=== PATIENT | male | born 1970 | race Caucasian/White ===

== ENCOUNTER 2018-04-01 05:26 | Emergency (ER) | payer OTHER ==
[2018-04-01] MEDS ORDERED: HYDROcodone/Acetaminophen 10/325 mg Tablet ONE (05:47)
[2018-04-01] MEDS ORDERED: Ibuprofen 800 MG TAB ONE (05:48)
[2018-04-01] MEDS ORDERED: AMOXicillin 250 MG CAP ONE (05:48)
== END 2018-04-01 06:00 | disposition home or self-care (01) ==
LOC: BURERS 05:26
DX: K04.7 Periapical abscess without sinus (principal); I10 Essential (primary) hypertension; F43.10 Post-traumatic stress disorder, unspecified; F41.9 Anxiety disorder, unspecified; F31.9 Bipolar disorder, unspecified; F17.210 Nicotine dependence, cigarettes, uncomplicated; G43.909 Migraine, unspecified, not intractable, without status migrainosus; Z79.899 Other long term (current) drug therapy
CPT/HCPCS: 99282